=== PATIENT | female | born 1985 | race Caucasian/White ===

== ENCOUNTER 2020-02-12 17:25 | Emergency (ER) | payer BC, MEDICAID ==
[~2020-02-12] VITALS: Ht 167 cm; Wt 101.8 kg
[~2020-02-12 17:25] MED LIST: ACHYD1T PO; CEPH250T PO; CPH250CIP PO; DCS100C PO; IBP800T PO; LORA1TAB59 PO; LRT10T PO; OXYC-12 PO; PREN1TAB39 PO
[2020-02-12] MEDS ORDERED: DEXAMETHASONE 10 MG/ML (DECADRON) 1 ML VIAL IV ONE (18:00)
[2020-02-12] MEDS ORDERED: NS IV 1000 ML 1,000 ML IV SCH (18:00)
--- NOTE | 2020-02-12 18:05 | ED Integumentary General ---
General Chief Complaint: Bite-Animal/Human/Insect Stated Complaint: SPIDER BITE,SOB, DIZZINESS Nursing Triage Note: PT BIT BY SPIDER ON February AND NOW HAS SIGNIFICANT SWELLING AND REDNESS TO LEFT SIDE OF NECK. PT REPORTS DIFFICULTY SWALLOWING AND OCCASSIONALLY DIFFICULTY BREATHING. PT REPORTS INCREASED FATIGUE AND DIZZINESS. Source: patient Exam Limitations: no limitations History of Present Illness Date Seen by Provider: Feb 12, 2020 Time Seen by Provider: 18:03 Initial Comments To ER with swelling redness and pain to the left side of the neck. This began on February 07. She felt something sharp but did not see anything bite her. She now has some painful swallowing, intermittent dizziness no nausea no fevers. Timing/Duration: constant Severity: moderate Associated Symptoms: denies symptoms Allergies and Home Medications Allergies Coded Allergies: Penicillins (Unverified Allergy, Mild, RASH, FEVER, 03/03/09) Home Medications Docusate Sodium 100 Mg Capsule, 100 MG PO BID, (Reported) Hydrocodone Bit/Acetaminophen 1 Tab Tablet, 1-2 TAB PO Q3H PRN, (Reported) Ibuprofen 800 Mg Tab, 800 MG PO Q6HR PRN, (Reported) Loratadine/Pseudoephedrine Sul 1 Each Tab.sr.12h, 1 TAB PO DAILY PRN, (Reported) NEEDED FOR ALLERGIES Vits W-Ca,Fe,Fa(<1MG) 1 Each Tablet, 1 TAB PO HS, (Reported) Patient Home Medication List Home Medication List Reviewed: Yes Review of Systems Review of Systems Constitutional: see HPI EENTM: see HPI Respiratory: no symptoms reported Cardiovascular: no symptoms reported Genitourinary: no symptoms reported Musculoskeletal: no symptoms reported Skin: see HPI Psychiatric/Neurological: No Symptoms Reported Endocrine: No Symptoms Reported Hematologic/Lymphatic: No Symptoms Reported Past Gptqrwg-Mktycp-Ecvtqh Hx Patient Social History Alcohol Use: Denies Use Recreational Drug Use: No 2nd Hand Smoke Exposure: No Recent Foreign Travel: No Contact w/Someone Who Travel: No Recent Infectious Disease Expo: No Recent Hopitalizations: Yes (child ) Immunizations Up To Date Tetanus Booster (TDap): Unknown Seasonal Allergies Seasonal Allergies: No Past Medical History Surgeries: Yes (C/S X2) Respiratory: No Cardiac: No Neurological: No Reproductive Disorders: Yes Sexually Transmitted Disease: Yes (chlamydia) Gastrointestinal: No Musculoskeletal: No Endocrine: No Cancer: No Psychosocial: No Integumentary: No Blood Disorders: No Physical Exam Vital Signs Vital Signs - First Documented 02/12/20 17:34 Pulse 95 Resp 20 B/P (MAP) 139/84 (102) Pulse Ox 93 O2 Delivery Room Air Capillary Refill : Less Than 3 Seconds General Appearance: WD/WN, no apparent distress HEENT: PERRL/EOMI, normal ENT inspection Respiratory: no respiratory distress, no accessory muscle use Neurologic/Psychiatric: alert, normal mood/affect, oriented x 3 Skin: normal color, warm/dry Skin Problem Character: other (erythema with central pallor about palm size to the left side of the neck. There is a nickel sized area that is somewhat indurated but overall not much swelling. No fluctuance. Within that nickel-sized area of induration there is a central punctum without drainage.) Progress/Results/Core Measures Results/Orders Lab Results Laboratory Tests Test 02/12/20 18:46 Range/Units White Blood Count 10.4 4.3-11.0 10^3/uL Red Blood Count 4.70 4.35-5.85 10^6/uL Hemoglobin 12.5 11.5-16.0 G/DL Hematocrit 37 35-52 % Mean Corpuscular Volume 78 L 80-99 FL Mean Corpuscular Hemoglobin 27 25-34 PG Mean Corpuscular Hemoglobin Concent 34 32-36 G/DL Red Cell Distribution Width 13.8 10.0-14.5 % Platelet Count 304 130-400 10^3/uL Mean Platelet Volume 9.8 7.4-10.4 FL Neutrophils (%) (Auto) 66 42-75 % Lymphocytes (%) (Auto) 22 12-44 % Monocytes (%) (Auto) 5 0-12 % Eosinophils (%) (Auto) 7 0-10 % Basophils (%) (Auto) 0 0-10 % Neutrophils # (Auto) 6.9 1.8-7.8 X 10^3 Lymphocytes # (Auto) 2.3 1.0-4.0 X 10^3 Monocytes # (Auto) 0.6 0.0-1.0 X 10^3 Eosinophils # (Auto) 0.7 H 0.0-0.3 10^3/uL Basophils # (Auto) 0.0 0.0-0.1 10^3/uL Sodium Level 138 135-145 MMOL/L Potassium Level 3.7 3.6-5.0 MMOL/L Chloride Level 105 98-107 MMOL/L Carbon Dioxide Level 23 21-32 MMOL/L Anion Gap 10 5-14 MMOL/L Blood Urea Nitrogen 9 7-18 MG/DL Creatinine 0.81 0.60-1.30 MG/DL Estimat Glomerular Filtration Rate > 60 BUN/Creatinine Ratio 11 Glucose Level 91 70-105 MG/DL Calcium Level 9.1 8.5-10.1 MG/DL Corrected Calcium 9.1 8.5-10.1 MG/DL Total Bilirubin 0.3 0.1-1.0 MG/DL Aspartate Amino Transf (AST/SGOT) 23 5-34 U/L Alanine Aminotransferase (ALT/SGPT) 19 0-55 U/L Alkaline Phosphatase 110 40-136 U/L C-Reactive Protein High Sensitivity 2.12 H 0.00-0.50 MG/DL Total Protein 7.7 6.4-8.2 GM/DL Albumin 4.0 3.2-4.5 GM/DL Serum Test, Qualitative NEGATIVE NEGATIVE My Orders Orders - SETH HERBERT OBIEE CONSULTANT Cbc With Automated Diff (02/12/20 17:36) Comprehensive Metabolic Panel (02/12/20 17:36) Hs C Reactive Protein (02/12/20 17:55) Ns Iv 1000 Ml (Sodium Chloride 0.9%) (02/12/20 18:00) Ua Culture If Indicated (02/12/20 17:56) Ct Neck (Soft Tissue) W (02/12/20 18:00) Dexamethasone Injection (Decadron Inject (02/12/20 18:00) Iohexol Injection (Omnipaque 350 Mg/Ml 1 (02/12/20 18:15) Received Contrast (Hold Metformin- Contr (02/12/20 18:15) Ns (Ivpb) (Sodium Chloride 0.9% Ivpb Bag (02/12/20 18:15) Hcg,Qualitative Serum (02/12/20 19:06) Medications Given in ED Current Medications Medications Dose Ordered Sig/Martínez Route Start Time Stop Time Status Last Admin Dose Admin Dexamethasone Sodium Phosphate 10 mg ONCE ONCE IV 02/12/20 18:00 02/12/20 18:01 DC 02/12/20 18:53 10 MG Iohexol 75 ml ONCE ONCE IV 7/7/20 18:15 02/12/20 18:16 DC 02/12/20 19:18 75 ML Sodium Chloride 100 ml ONCE ONCE IV 02/12/20 18:15 02/12/20 18:16 DC 02/12/20 19:18 100 ML Vital Signs/I&O 02/12/20 17:34 Pulse 95 Resp 20 B/P (MAP) 139/84 (102) Pulse Ox 93 O2 Delivery Room Air Blood Pressure Mean: 102 Diagnostic Imaging Diagonstic Imaging: CT Comments NAME: TALYA MERLOS [facility] REC#: [id number] PT STATUS: REG ER : 1985 PHYSICIAN: SETH HERBERT OBIEE CONSULTANT ADMIT DATE: 02/12/20/ER Draft Date of Exam:02/12/20 CT NECK (SOFT TISSUE) W PROCEDURE: CT neck soft tissue with contrast. TECHNIQUE: Multiple contiguous axial images were obtained through the neck after the administration of contrast. Auto Exposure Controls were utilized during the CT exam to meet ALARA standards for radiation dose reduction. INDICATION: Spider bite COMPARISON: None available FINDINGS: Partially visualized intracranial contents are grossly unremarkable. The orbits are unremarkable. Parapharyngeal fat is symmetric and well-maintained. The salivary glands are unremarkable. The epiglottis and aryepiglottic folds are unremarkable. Fat stranding is identified within the left neck within the submandibular region. This is associated with thickening of the left platysma. Mildly prominent left cervical lymph nodes are noted within this region, including within the left submental and left submandibular location. Skin thickening is also present at this location. No focal fluid collection. The jugular vein and carotid arteries are not occluded. The thyroid gland is unremarkable. No apical pneumothorax. The lungs appear clear. The airway is patent. True and false vocal cords are unremarkable. Mild mucosal thickening within the bilateral maxillary sinuses, left greater than right. Minimal fluid/mucosal thickening within scattered ethmoidal air cells. The bilateral mastoid sinuses are clear. No temporomandibular joint dislocation. Straightening of normal cervical lordosis without acute osseous abnormality. IMPRESSION: Findings consistent with cellulitis involving the left neck region without evidence of abscess formation. Mild left-sided reactive adenopathy is present. No evidence of airway compromise. Mild paranasal sinus disease Dictated on workstation # [id number] Dict: 02/12/201918 Trans: 02/12/201927 [facility], [facility] [id number] Interpreted by: SUNITHA MANTILLA MD Electronically signed by: Departure Impression Primary Impression: Spider bite wound Qualified Codes: T63.304A - Toxic effect of unspecified spider venom, undetermined, initial encounter Disposition: HOME, SELF-CARE Condition: Stable Departure-Patient Inst. Decision time for Depature: 19:32 Referrals: NOAH SMITH MD (PCP/Family) Primary Care Physician Patient Instructions: Wound Care Add. Discharge Instructions: Ice pack to the area. Pain medication as directed. Antibiotics as directed. Follow-up with your doctor later this week for recheck. Return to ER for any worsening. All discharge instructions reviewed with patient and/or family. Voiced understanding. Scripts Cephalexin (Keflex) 500 Mg Capsule 500 MG PO QID, #28 CAP Prov: SETH HERBERT APRN 02/12/20 Prednisone (Prednisone) 20 Mg Tab 60 MG PO DAILY, #9 TAB 0 Refills Prov: SETH HERBERT APRN 02/12/20 Images Head/Face 1 - Tenderness SETH HERBERT APRN Feb 12, 2020 18:05
[2020-02-12] MEDS ORDERED: HOLD METFORMIN - RECEIVED CONTRAST 20 ML VIAL IV SCH (18:15)
[2020-02-12] MEDS ORDERED: NS 100 ML (IVPB) BAG IV ONE (18:15)
[2020-02-12] MEDS ORDERED: IOHEXOL 350 MG/ML 100 ML (OMNIPAQUE 350) VIAL IV ONE (18:15)
[2020-02-12 18:52] LABS: BASOPHILS % (AUTO) 0 % (0-10); EOSINOPHILS # (AUTO) 0.7 10^3/uL (0.0-0.3); EOSINOPHILS % (AUTO) 7 % (0-10); HEMATOCRIT 37 % (35-52); HEMOGLOBIN 12.5 G/DL (11.5-16.0); LYMPHOCYTES # (AUTO) 2.3 X 10^3 (1.0-4.0); LYMPHOCYTES % (AUTO) 22 % (12-44); MEAN CORPUSCULAR HEMOGLOBIN 27 PG (25-34); MEAN CORPUSCULAR HGB CONC 34 G/DL (32-36); MEAN CORPUSCULAR VOLUME 78 FL (80-99); MEAN PLATELET VOLUME 9.8 FL (7.4-10.4); MONOCYTES # (AUTO) 0.6 X 10^3 (0.0-1.0); MONOCYTES % (AUTO) 5 % (0-12); NEUTROPHILS # (AUTO) 6.9 X 10^3 (1.8-7.8); NEUTROPHILS % (AUTO) 66 % (42-75); PLATELET COUNT 304 10^3/uL (130-400); RED CELL DISTRIBUTION WIDTH 13.8 % (10.0-14.5); WHITE BLOOD COUNT 10.4 10^3/uL (4.3-11.0)
--- NOTE | 2020-02-12 19:28 | Diagnostic Imaging Report ---
PROCEDURE: CT neck soft tissue with contrast. TECHNIQUE: Multiple contiguous axial images were obtained through the neck after the administration of contrast. Auto Exposure Controls were utilized during the CT exam to meet ALARA standards for radiation dose reduction. INDICATION: Spider bite COMPARISON: None available FINDINGS: Partially visualized intracranial contents are grossly unremarkable. The orbits are unremarkable. Parapharyngeal fat is symmetric and well-maintained. The salivary glands are unremarkable. The epiglottis and aryepiglottic folds are unremarkable. Fat stranding is identified within the left neck within the submandibular region. This is associated with thickening of the left platysma. Mildly prominent left cervical lymph nodes are noted within this region, including within the left submental and left submandibular location. Skin thickening is also present at this location. No focal fluid collection. The jugular vein and carotid arteries are not occluded. The thyroid gland is unremarkable. No apical pneumothorax. The lungs appear clear. The airway is patent. True and false vocal cords are unremarkable. Mild mucosal thickening within the bilateral maxillary sinuses, left greater than right. Minimal fluid/mucosal thickening within scattered ethmoidal air cells. The bilateral mastoid sinuses are clear. No temporomandibular joint dislocation. Straightening of normal cervical lordosis without acute osseous abnormality. IMPRESSION: Findings consistent with cellulitis involving the left neck region without evidence of abscess formation. Mild left-sided reactive adenopathy is present. No evidence of airway compromise. Mild paranasal sinus disease Dictated by: Dictated on workstation # [id number]
[2020-02-12 19:29] LABS: ALANINE AMINOTRANSFERASE 19 U/L (0-55); ALKALINE PHOSPHATASE 110 U/L (40-136); BILIRUBIN,TOTAL 0.3 MG/DL (0.1-1.0); BUN/CREATININE RATIO 11; CALCIUM 9.1 MG/DL (8.5-10.1); CARBON DIOXIDE 23 MMOL/L (21-32); CHLORIDE 105 MMOL/L (98-107); CREATININE SERUM 0.81 MG/DL (0.60-1.30); GFR ESTIMATED > 60; GLUCOSE 91 MG/DL (70-105); POTASSIUM 3.7 MMOL/L (3.6-5.0); SODIUM 138 MMOL/L (135-145); TOTAL PROTEIN 7.7 GM/DL (6.4-8.2)
[2020-02-12] MEDS ORDERED: CEPH-507 PO (19:36)
[2020-02-12] MEDS ORDERED: HYDR-3870 PO (19:36)
[2020-02-12] MEDS ORDERED: PRD20T PO (19:36)
[2020-02-12 19:55] LABS: BILIRUBIN,URINE NEGATIVE (NEGATIVE); CLARITY,URINE CLEAR; COLOR,URINE YELLOW; GLUCOSE, URINE (UA) NEGATIVE (NEGATIVE); KETONES,URINE NEGATIVE (NEGATIVE); LEUKOCYTE ESTERASE ,URINE NEGATIVE (NEGATIVE); NITRITE,URINE NEGATIVE (NEGATIVE); PROTEIN,URINE NEGATIVE (NEGATIVE)
[2020-02-12 20:36] LABS: AMORPHOUS SEDIMENT,UR RARE AMOR URATES /LPF; BACTERIA,URINE NEGATIVE /HPF; RBC,URINE 0-2 /HPF; WBC,URINE 0-2 /HPF
[2020-02-12 20:40] VITALS: BP 124/88
--- OUTSIDE RECORDS SUMMARY | 2020-02-12 22:18 | XMS REPORT ---
Author Author Abril GOMEZ [facility] Address [address] [place] [address] Care Team Providers Care Land Acquisition Specialist Name Role Phone MEENA GOMEZ Unavailable PROBLEMS Unknown Problems ALLERGIES No Information ENCOUNTERS Encounter Location Date Diagnosis [facility] [address] [facility] [id number] [place] [address] Jul, Visit for TB skin test Z11.1 IMMUNIZATIONS No Known Immunizations SOCIAL HISTORY Never Assessed REASON FOR VISIT TB skin test [id number] PLAN OF CARE Activity Details Follow Up 48-72 hours Reason: VITAL SIGNS MEDICATIONS Unknown Medications RESULTS No Results PROCEDURES Procedure Date Ordered Result Body Site TB INTRADERMAL TEST Aug 02, 2017 INSTRUCTIONS MEDICATIONS ADMINISTERED No Known Medications
--- OUTSIDE RECORDS SUMMARY | 2020-02-12 22:18 | XMS REPORT | Continuity of Care Document ---
Author Organization Unknown Address Unknown Phone Unavailable Allergies Active Description Code Type Severity Reaction Onset Reported/Identified Relationship to Patient Clinical Status Yes Penicillins [id number] Drug Aller gy Mild RASH, FEVER 03/03/2009 Medications There is no data. Problems Date Dx Coded Attending Type Code Diagnosis Diagnosed By 07/08/2017 Ot 644.13 07/10/2018 Ot 644.13 06/08/2019 Ot 644.13 Procedures There is no data. Results Test Result Range Complete blood count (CBC) with automate d white blood cell (WBC) differential - 02/12/20 18:46 Blood leukocytes automated count (number/volume) 10.4 10*3/uL 4.3-11.0 Blood erythrocytes automated count (number/volume) 4.70 10*6/uL 4.35-5.85 Venous blood hemoglobin measurement (mass/volume) 12.5 g/dL 11.5-16.0 Blood hematocrit (volume fraction) 37 % 35-52 Automated erythrocyte mean corpuscular volume 78 [ foz_us] 80-99 Automated erythrocyte mean corpuscular h emoglobin (mass per erythrocyte) 27 pg 25-34 Automated erythrocyte mean corpuscular h emoglobin concentration measurement (mass/volume) 34 g/dL 32-36 Automated erythrocyte distribution width ratio 13. 8 % 10.0- 14.5 Automated blood platelet count (count/volume) 304 10*3/uL 130-400 Automated blood platelet mean volume measurement 9.8 [foz_us] 7.4-10.4 Automated blood neutrophils/100 leukocytes 66 % 42-75 Automated blood lymphocytes/100 leukocytes 22 % 12-44 Blood monocytes/100 leukocytes 5 % 0-12 Automated blood eosinophils/100 leukocytes 7 % 0-10 Automated blood basophils/100 leukocytes 0 % 0-10 Blood neutrophils automated count (number/volume) 6.9 10*3 1.8-7.8 Blood lymphocytes automated count (number/volume) 2.3 10*3 1.0-4.0 Blood monocytes automated count (number/volume) 0. 6 10*3 0.0-1.0 Automated eosinophil count 0.7 10*3/uL 0 .0-0.3 Automated blood basophil count (count/volume) 0.0 10*3/uL 0.0-0.1 Serum or plasma choriogonadotropin (preg lizzy test) detection - 02/12/20 18:46 Serum or plasma choriogonadotropin ( test) de tection NEGATIVE NEGATIVE Comprehensive metabolic panel - 02/12/20 18:46 Serum or plasma sodium measurement (moles/volume) 138 mmol/L 135-145 Serum or plasma potassium measurement (moles/volume) 3.7 mmol/L 3.6-5.0 Serum or plasma chloride measurement (moles/volume) 105 mmol/L 98-107 Carbon dioxide 23 mmol/L 21-32 Serum or plasma anion gap determination (moles/volume) 10 mmol/L 5-14 Serum or plasma urea nitrogen measurement (mass/volume ) 9 mg/dL 7-18 Serum or plasma creatinine measurement (mass/volume) 0.81 mg/dL 0.60-1.30 Serum or plasma urea nitrogen/creatinine mass ratio 11 NRG Serum or plasma creatinine measurement w ith calculation of estimated glomerular filtration rate > NRG Serum or plasma glucose measurement (mass/volume) 91 mg/dL 70-105 Serum or plasma calcium measurement (mass/volume) 9.1 mg/dL 8.5-10.1 Serum or plasma total bilirubin measurement (mass/volu me) 0.3 mg/dL 0.1-1.0 Serum or plasma alkaline phosphatase joey surement (enzymatic activity/volume) 110 U/L 40-136 Serum or plasma aspartate aminotransfera se measurement (enzymatic activity/volume) 23 U/L 5-34 Serum or plasma alanine aminotransferase measurement (enzymatic activity/volume) 19 U/L 0-55 Serum or plasma protein measurement (mass/volume) 7.7 g/dL 6.4-8.2 Serum or plasma albumin measurement (mass/volume) 4.0 g/dL 3.2-4.5 CALCIUM CORRECTED 9.1 mg/dL 8.5-10.1 Serum or plasma C reactive protein measu rement (mass/volume) - 02/12/20 18:46 Serum or plasma C reactive protein measurement (mass/v olume) 2.12 mg/dL 0.00-0.50 Complete urinalysis with reflex to cultu re - 02/12/20 19:45 Urine color determination YELLOW NRG Urine clarity determination CLEAR NR G Urine pH measurement by test strip 6.0 5-9 Specific gravity of urine by test strip 1.010 1.016-1.022 Urine protein assay by test strip, semi-quantitative NEGATIVE NEGATIVE Urine glucose detection by automated test strip NE GATIVE NEGATIVE Erythrocytes detection in urine sediment by light micr oscopy 1+ NEGATIVE Urine ketones detection by automated test strip NE GATIVE NEGATIVE Urine nitrite detection by test strip NEGATIVE NEGATIVE Urine total bilirubin detection by test strip NEGA TIVE NEGATIVE Urine urobilinogen measurement by automated test strip (mass/volume) 0.2 mg/dL < = 1.0 Urine leukocyte esterase detection by dipstick NEG ATIVE NEGATIVE Automated urine sediment erythrocyte cou nt by microscopy (number/high power field) [HPF] NRG Automated urine sediment leukocyte count by microscopy (number/high power field) [HPF] NRG Bacteria detection in urine sediment by light microsco py NEGATIVE NRG Crystals detection in urine sediment by light microsco py PRESENT NRG Casts detection in urine sediment by light microscopy NONE NRG Mucus detection in urine sediment by light microscopy NEGATIVE NRG Complete urinalysis with reflex to culture NO NRG Amorphous sediment detection in urine sediment by ligh t microscopy RARE GLORIA URATES NRG Encounters ACCT No. Visit Date/Time Discharge Status Pt. Type Provider Facility Loc./Unit Complaint [id number] 02/10/2020 14:00:00 ACT Outpatient SARAH BANKS, NOAH [facility] [id number] 05/22/2013 05:34:00 13:25:00 DIS Inpatient [id number] 05/16/2013 09:46:00 23:59:59 CLS Outpatient [id number] 05/04/2013 12:41:00 14:29:00 DIS Outpatient [id number] 04/11/2013 21:12:00 11:18:00 DIS Outpatient [id number] 04/11/2013 11:28:00 17:50:00 DIS Outpatient [id number] 01/08/2013 14:52:00 013 23:59:59 [facility] Outpatient [id number] 02/12/2020 18:57:00 Document Registration [id number] 03/24/2009 22:30:00 Document Registration
--- OUTSIDE RECORDS SUMMARY | 2020-02-12 22:18 | XMS REPORT | Continuity of Care Document ---
Author Author [facility] Organization [facility] Address Unknown Phone Unavailable Care Team Providers Care Staying Machine Operator Name Role Phone NOAH SMITH MD PP Insurance Providers Payer Name Policy Number Subscriber Name Relationship [facility] [employer] [id number] Talya Ortiz 01 Self / Same As Patient Advance Directives Directive Response Recor ded Date Advance Directives N 11/18 12:16pm Health Care Power of Sap Gatherer N 04/11/13 12:16pm Organ Donor N 04/11/13 1 2:16pm Problems No Known Problems or Medical conditions. Family History History Response Recorde d Date/Time Hx Family Cancer Y father/ca thyroid 06/30/10 6:20am Hx Family Breast Cancer Y aunt/grandmother 06/30/10 6:20am Hx Family Cardiac Disorders Y father 06/30/10 6:20am Hx Family Hypertension Y 06/30/10 6:20am Hx Family Myocardial Infarction Y father 06/30/10 6:20am Allergies, Adverse Reactions, Alerts Allergen Type Severity Reaction Last Updated Penicillins Allergy Mild RASH, FEVER 03/03/09 Medications Medication Dose Units Route Sig Qty Days Vits W-Ca,Fe,Fa(<1MG) () 1 Tab PO DAILY Loratadine (Claritin) 10 Mg PO DAILY Oxycodone Hcl/Acetaminophen (Percocet 5-325 Mg Tablet) 1 Each PO 1-2 PO Q 4HR PRN Response Recorded Date/Time Status not known Unknown Results Test Date Result Interp. Ref. Range Alanine Aminotransferase (ALT/SGPT) July 02, 2010 4:45am 23 U/L L 30-65 Albumin July 02, 2010 4:45am 2.4 G/DL L 3.4-5.0 Alkaline Phosphatase July 02 10 4:45am 199 U/L H 50-136 Aspartate Amino Transf (AST/SGOT) No [id number] 4:45am 17 U/L N 15-37 BUN/Creatinine Ratio July 02 10 4:45am 4 - Band Neutrophils March 25, 2009 3:59am 3 % - Basophils # (Auto) July 01, 2010 5:41a m 0.0 10^3/uL N 0.0-0.1 Basophils (%) (Auto) July 01 10 5:41am 0 % N 0-10 Blood Urea Nitrogen July 02 0 4:45am 4 MG/DL L 7-18 Calcium Level July 02, 2010 4:45am 8.1 MG/DL L 8.5-10.1 Carbon Dioxide Level July 02 10 4:45am 26 MMOL/L N 21-32 Chloride Level July 02, 2010 4:45am 103 MMOL/L N 101-110 Creatinine July 02, 2010 4:45am 0.9 MG/DL N 0.6-1.3 Eosinophils # (Auto) July 01 10 5:41am 0.1 10^3/uL N 0.0-0.3 Eosinophils (%) (Auto) July 01, 2010 5:41am 1 % N 0-10 Glucose Level July 02, 2010 4:45am 79 MG/DL N 70-126 Hematocrit July 01, 2010 5:41am 30 % L 35-52 Hemoglobin July 01, 2010 5:41am 10.0 G/DL L 11.5-16.0 Lymphocytes # (Auto) July 01 10 5:41am 1.5 X 10^3 N 1.0-4.0 Lymphocytes % (Manual) March 25 09 3:59am 8 % - Lymphocytes (%) (Auto) July 01, 2010 5:41am 14 % N 12-44 Magnesium Level July 02, 2010 4:45am 1.8 MG/DL N 1.8-2.4 Mean Corpuscular Hemoglobin July 01, 2010 5:41am 28 PG N 25-34 Mean Corpuscular Hemoglobin Concent July 01, 2010 5:41am 33 G/DL N 32-36 Mean Corpuscular Volume July 01, 2010 5:41am 84 FL N 80-99 Mean Platelet Volume July 01 10 5:41am 11.4 FL H 7.4-10.4 Monocytes # (Auto) July 01, 2010 5:41a m 0.7 X 10^3 N 0.0-1.0 Monocytes % (Manual) March 25, 2009 3:59a m 2 % - Monocytes (%) (Auto) July 01 10 5:41am 7 % N 0-12 Neutrophils # (Auto) July 01 10 5:41am 8.3 X 10^3 H 1.8-7.8 Neutrophils % (Manual) March 25 09 3:59am 87 % - Neutrophils (%) (Auto) July 01, 2010 5:41am 78 % H 42-75 Platelet Count July 01, 2010 5:41am 159 10^3/uL N 130-400 Potassium Level July 02, 2010 4:45am 3.5 MMOL/L L 3.6-5.0 Red Blood Count July 01, 2010 5:41am 3.57 10^6/uL L 4.35-5.85 Red Cell Distribution Width July 01, 2010 5:41am 13.8 % N 10.0-14.5 Sodium Level July 02, 2010 4:45am 136 MMOL/L N 135-145 Total Bilirubin July 02, 2010 4:45am 0.2 MG/DL N 0.0-1.0 Total Protein July 02, 2010 4:45am 6.2 G/DL L 6.4-8.2 Urine Bacteria March 06, 2010 3:45pm TRACE - Urine Bilirubin March 06, 2010 3:45pm NEGATIVE - Urine Casts March 06, 2010 3:45pm NONE - Urine Clarity March 06, 2010 3:45pm CLEAR - Urine Color March 06, 2010 3:45pm YELLOW - Urine Crystals March 06, 2010 3:45pm NONE - Urine Culture Indicated March 06 0 3:45pm YES - Urine Glucose (UA) March 06, 2010 3:45pm NEGATIVE - Urine Ketones March 06, 2010 3:45pm NEGATIVE - Urine Leukocyte Esterase March 06 10 3:45pm NEGATIVE - Urine Mucus March 06, 2010 3:45pm NEGATIVE - Urine Nitrite March 06, 2010 3:45pm NEGATIVE - Urine Protein March 06, 2010 3:45pm TRACE - Urine RBC March 06, 2010 3:45pm NONE /HPF - Urine Specific [place] March 06, 2010 3:45p m 1.020 - Urine Squamous Epithelial Cells March 06, 2010 3:45pm 10-25 H - Urine Urobilinogen March 06, 2010 3:45pm NORMAL MG/DL - Urine WBC March 06, 2010 3:45pm 10-25 /HPF H - Urine pH March 06, 2010 3:45pm 5.0 - White Blood Count July 01, 2010 5:41am 10.6 10^3/uL N 4.3-11.0 Estimat Glomerular Filtration Rate N ovember 2009 9:35am > 60 - Blood Morphology Comment March 25, 2009 3:59am NORMAL - Urine RBC (Auto) March 06, 2010 3:45pm 1+ H - Procedures Procedure Code Date LOW CERVICAL 74.1 03/25/09 LOW CERVICAL 74.1 06/30/10 MRSA Screen 06/23/10 Urine Culture 03/06/10 Encounters Encounter Location Date/ Time Discharged Inpatient [facility] 06/30/10 6:03am
--- OUTSIDE RECORDS SUMMARY | 2020-02-12 22:18 | XMS REPORT | Continuity of Care Document ---
Author Author [facility] Organization [facility] Address Unknown Phone Unavailable Care Team Providers Care Tutor Coordinator Name Role Phone NOAH SMITH MD PP Insurance Providers Payer Name Policy Number Subscriber Name Relationship [facility] [id number] Talya Ortiz 01 Self / Same As Patient Advance Directives Directive Response Recor ded Date Advance Directives N 5:50am Health Care Power of Consulting Database Administrator N 05/22/13 5:50am Organ Donor N 05/22/13 5 :50am Problems No Known Problems or Medical conditions. Family History History Response Recorde d Date/Time Hx Family Cancer Y father/ca thyroid 05/22/13 5:50am Hx Family Breast Cancer Y aunt/grandmother 05/22/13 5:50am Hx Family Cardiac Disorders Y father 05/22/13 5:50am Hx Family Hypertension Y 05/22/13 5:50am Hx Family Myocardial Infarction Y father 05/22/13 5:50am Social History History Response Recorde d Date/Time Alcohol Use Denies Use 1 5:50am Recreational Drug Use N 05/22/13 5:50am Recent Foreign Travel N 05/22/13 5:50am Recent Infectious Disease Exposure N 05/22/13 5:50am Hospitalization with Isolation Denies 05/25/13 1:45pm Sexually Transmitted Disease Y chlamydia 05/22/13 5:50am Allergies, Adverse Reactions, Alerts Allergen Type Severity Reaction Last Updated Penicillins Allergy Mild RASH, FEVER 03/03/09 Medications Medication Dose Units Route Sig Qty Days Ibuprofen (Motrin) 800 Mg PO Q6HR PRN 60 Acetaminophen/Hydrocodone Bitart (Lorcet Plus 10/325 M g) 1 - 2 Tab PO Q3H PRN 60 Docusate Sodium (Colace) 100 Mg PO BID 60 Loratadine/Pseudoephedrine Sul (Claritin-D 12 Hour Tab let) 1 Tab PO DAILY PRN Vits W-Ca,Fe,Fa(<1MG) () 1 Tab PO HS Cephalexin Hcl (Keflex Capsule) 250 Mg PO QID 7 Cephalexin Monohydrate (Cephalexin) 1 Each PO TID 21 Loratadine (Claritin) 10 Mg PO DAILY Oxycodone Hcl/Acetaminophen (Percocet 5-325 Mg Tablet) 1 Each PO 1-2 PO Q 4HR PRN Immunizations Name Given Type Tdap 05/24/13 A influenza, split (incl. purified surface antigen) 05/24/13 A influenza, split (incl. purified surface antigen) 05/04/13 A Response Recorded Date/Time Status not known Unknown [...] 3:59am 3 % - Basophils # (Auto) May 16, 2013 10:15a m 0.0 10^3/uL N 0.0-0.1 Basophils (%) (Auto) May 16 3 10:15am 0 % N 0-10 Blood Urea Nitrogen July 02 0 4:45am 4 MG/DL L 7-18 Calcium Level July 02, 2010 4:45am 8.1 MG/DL L 8.5-10.1 Carbon Dioxide Level July 02 10 4:45am 26 MMOL/L N 21-32 Chloride Level July 02, 2010 4:45am 103 MMOL/L N 101-110 Creatinine July 02, 2010 4:45am 0.9 MG/DL N 0.6-1.3 Eosinophils # (Auto) May 16 3 10:15am 0.1 10^3/uL N 0.0-0.3 Eosinophils (%) (Auto) May 16 013 10:15am 1 % N 0-10 Glucose Level July 02, 2010 4:45am 79 MG/DL N 70-126 Hematocrit May 16, 2013 10:15am 35 % N 35-52 Hemoglobin May 16, 2013 10:15am 12.2 G/DL N 11.5-16.0 Lymphocytes # (Auto) May 16 10:15am 1.6 X 10^3 N 1.0-4.0 Lymphocytes % (Manual) March 25 3:59am 8 % - Lymphocytes (%) (Auto) May 16 013 10:15am 17 % N 12-44 Magnesium Level July 02, 2010 4:45am 1.8 MG/DL N 1.8-2.4 Mean Corpuscular Hemoglobin May 16, 2013 10:15am 29 PG N 25-34 Mean Corpuscular Hemoglobin Concent May 16, 2013 10:15am 35 G/DL N 32-36 Mean Corpuscular Volume May 16, 2013 10:15am 84 FL N 80-99 Mean Platelet Volume May 16 3 10:15am 10.9 FL H 7.4-10.4 Monocytes # (Auto) May 16, 2013 10:15a m 0.4 X 10^3 N 0.0-1.0 Monocytes % (Manual) March 25, 2009 3:59a m 2 % - Monocytes (%) (Auto) May 16 10:15am 4 % N 0-12 Neutrophils # (Auto) May 16 10:15am 7.0 X 10^3 N 1.8-7.8 Neutrophils % (Manual) March 25 3:59am 87 % - Neutrophils (%) (Auto) May 16 013 10:15am 78 % H 42-75 Platelet Count May 16, 2013 10:15am 200 10^3/uL N 130-400 Potassium Level July 02, 2010 4:45am 3.5 MMOL/L L 3.6-5.0 Red Blood Count May 16, 2013 10:15am 4.20 10^6/uL L 4.35-5.85 Red Cell Distribution Width May 16, 2013 10:15am 13.6 % N 10.0-14.5 Sodium Level July 02, 2010 4:45am 136 MMOL/L N 135-145 Total Bilirubin July 02, 2010 4:45am 0.2 MG/DL N 0.0-1.0 Total Protein July 02, 2010 4:45am 6.2 G/DL L 6.4-8.2 Urine Bacteria May 04, 2013 12:55pm MODERATE /HPF H - Urine Bilirubin May 04, 2013 12:55pm NEGATIVE - Urine Casts May 04, 2013 12:55pm NONE /LPF - Urine Clarity May 04, 2013 12:55pm SLIGHTLY CLOUDY - Urine Color May 04, 2013 12:55pm YELLOW - Urine Crystals May 04, 2013 12:55pm NONE /LPF - Urine Culture Indicated April 12:55pm NO - Urine Glucose (UA) May 04 3 12:55pm NEGATIVE - Urine Ketones May 04, 2013 12:55pm NEGATIVE - Urine Leukocyte Esterase April 092012 12:55pm 1+ H - Urine Mucus May 04, 2013 12:55pm NEGATIVE /LPF - Urine Nitrite May 04, 2013 12:55pm NEGATIVE - Urine Protein May 04, 2013 12:55pm NEGATIVE - Urine RBC May 04, 2013 12:55pm NONE /HPF - Urine Specific [place] May 04, 2013 12:55pm 1.010 L - Urine Squamous Epithelial Cells Sept emb2012 12:55pm 2-5 /HPF - Urine Urobilinogen May 04 3 12:55pm NORMAL MG/DL - Urine WBC May 04, 2013 12:55pm 5-10 /HPF H - Urine pH May 04, 2013 12:55pm 7 - White Blood Count May 16, 2013 10:15am 8.9 10^3/uL N 4.3-11.0 Estimat Glomerular Filtration Rate N ovember 2009 9:35am > 60 - Blood Morphology Comment March 25, 2009 3:59am NORMAL - Urine RBC (Auto) May 04, 2013 12:55p m NEGATIVE - Procedures Procedure Code Date LOW CERVICAL 74.1 03/25/09 LOW CERVICAL 74.1 06/30/10 MRSA Screen 06/23/10 Urine Culture 05/04/13 Encounters Encounter Location Date/ Time Discharged Inpatient [facility] 05/22/13 5:34am
--- OUTSIDE RECORDS SUMMARY | 2020-02-12 22:18 | XMS REPORT | Continuity of Care Document ---
Author Author [facility] Organization [facility] Address Unknown Phone Unavailable Care Team Providers Care Commander Internal Affairs Name Role Phone NOAH SMITH MD PP Insurance Providers Payer Name Policy Number Subscriber Name Relationship [facility] [employer] [id number] Talya Ortiz 01 Self / Same As Patient Advance Directives Directive Response Recor ded Date Advance Directives N 11/18 9:50pm Health Care Power of Service Loss Control Consultant N 04/11/13 9:50pm Organ Donor N 04/11/13 9 :50pm Problems No Known Problems or Medical conditions. [...] Medication Dose Units Route Sig Qty Days Cephalexin Hcl (Keflex Capsule) 250 Mg PO QID 7 Vits W-Ca,Fe,Fa(<1MG) () 1 Tab PO DAILY Cephalexin Monohydrate (Cephalexin) 1 Each PO TID 21 Loratadine (Claritin) 10 Mg PO DAILY Oxycodone Hcl/Acetaminophen (Percocet 5-325 Mg Tablet) 1 Each PO 1-2 PO Q 4HR PRN Immunizations Name Given Type influenza, split (incl. purified surface antigen) 05/04/13 A Response Recorded Date/Time Status not known Unknown Results Test Date Result Interp. Ref. Range Alanine Aminotransferase (ALT/SGPT) July 02, 2010 4:45am 23 U/L L 30-65 Albumin July 02, 2010 4:45am 2.4 G/DL L 3.4-5.0 Alkaline Phosphatase July 02 4:45am 199 U/L H 50-136 Aspartate Amino Transf (AST/SGOT) No vem2009 4:45am 17 U/L N 15-37 BUN/Creatinine Ratio July 02 4:45am 4 - Band Neutrophils March 25, 2009 3:59am 3 % - Basophils # (Auto) July 01, 2010 5:41a m 0.0 10^3/uL N 0.0-0.1 Basophils (%) (Auto) July 01 5:41am 0 % N 0-10 Blood Urea Nitrogen July 02 0 4:45am 4 MG/DL L 7-18 Calcium Level July 02, 2010 4:45am 8.1 MG/DL L 8.5-10.1 Carbon Dioxide Level July 02 10 4:45am 26 MMOL/L N 21-32 Chloride Level July 02, 2010 4:45am 103 MMOL/L N 101-110 Creatinine July 02, 2010 4:45am 0.9 MG/DL N 0.6-1.3 Eosinophils # (Auto) July 01 5:41am 0.1 10^3/uL N 0.0-0.3 Eosinophils (%) (Auto) July 01, 2010 5:41am 1 % N 0-10 Glucose Level July 02, 2010 4:45am 79 MG/DL N 70-126 Hematocrit July 01, 2010 5:41am 30 % L 35-52 Hemoglobin July 01, 2010 5:41am 10.0 G/DL L 11.5-16.0 Lymphocytes # (Auto) July 01 5:41am 1.5 X 10^3 N 1.0-4.0 Lymphocytes [...] 4:45am 6.2 G/DL L 6.4-8.2 Urine Bacteria April 11, 2013 9:35pm MODERATE /HPF H - Urine Bilirubin April 11, 2013 9:35pm NEGATIVE - Urine Casts April 11, 2013 9:35pm NONE /LPF - Urine Clarity April 11, 2013 9:35pm SLIGHTLY CLOUDY - Urine Color April 11, 2013 9:35pm YELLOW - Urine Crystals April 11, 2013 9:35pm NONE /LPF - Urine Culture Indicated April 9:35pm YES - Urine Glucose (UA) April 11 3 9:35pm 1+ H - Urine Ketones April 11, 2013 9:35pm NEGATIVE - Urine Leukocyte Esterase April 9:35pm 3+ H - Urine Mucus April 11, 2013 9:35pm NEGATIVE /LPF - Urine Nitrite April 11, 2013 9:35pm NEGATIVE - Urine Protein April 11, 2013 9:35pm 3+ H - Urine RBC April 11, 2013 9:35pm 50-100 /HPF H - Urine Specific [place] April 11, 2013 9:35pm 1.015 L - Urine Squamous Epithelial Cells March 06, 2010 3:45pm 10-25 H - Urine Urobilinogen April 11 3 9:35pm NORMAL MG/DL - Urine WBC April 11, 2013 9:35pm 50-100 /HPF H - Urine pH April 11, 2013 9:35pm 7 - White Blood Count July 01, 2010 5:41am 10.6 10^3/uL N 4.3-11.0 Estimat Glomerular Filtration Rate N ov2009 9:35am > 60 - Blood Morphology Comment March 25, 2009 3:59am NORMAL - Urine RBC (Auto) April 11, 2013 9:35pm 5+ H - Procedures Procedure Code Date LOW CERVICAL 74.1 03/25/09 LOW CERVICAL 74.1 06/30/10 MRSA Screen 06/23/10 Urine Culture 04/11/13 Encounters Encounter Location Date/ Time Discharged Inpatient [facility] 06/30/10 6:03am
--- OUTSIDE RECORDS SUMMARY | 2020-02-12 22:18 | XMS REPORT | Continuity of Care Document ---
Author Author [facility] Organization [facility] Address Unknown Phone Unavailable Care Team Providers Care Truck Mechanic Name Role Phone NOAH SMITH MD PP Insurance Providers Payer Name Policy Number Subscriber Name Relationship [facility] [employer] [id number] Talya Ortiz 01 Self / Same As Patient Advance Directives Directive Response Recor ded Date Advance Directives N 11/18 9:50pm Health Care Power of Neonatologist N 04/11/13 9:50pm Organ Donor N 04/11/13 [...] Dose Units Route Sig Qty Days Cephalexin Monohydrate (Cephalexin) 1 Each PO TID 21 Vits W-Ca,Fe,Fa(<1MG) () 1 Tab PO DAILY [...] 2010 3:45pm NONE /HPF - Urine Specific [place] March 06, 2010 3:45p m 1.020 - [...]
== END 2020-02-12 20:40 | disposition home or self-care (01) ==
LOC: EDUNIT# 17:25 → ER 17:26
DX: T63.301A Toxic effect of unspecified spider venom, accidental (unintentional), initial encounter (principal); Z88.0 Allergy status to penicillin
CPT/HCPCS: 36415; 70491; 80053; 81000; 84703; 85025; 86141

== ENCOUNTER 2021-04-05 19:19 | Emergency (ER) | payer BC ==
[~2021-04-05] VITALS: Ht 167.7 cm; Wt 95.3 kg
[~2021-04-05 19:19] MED LIST changes: +CEPH-507 PO; +HYDR-3870 PO; +PRD20T PO
--- NOTE | 2021-04-05 20:01 | Diagnostic Imaging Report ---
EXAMINATION: Right wrist radiographs, 3 views. COMPARISON: None. HISTORY: 35-year-old female, fall. Right wrist pain. FINDINGS: There is no identified acute fracture. There is no subluxation or dislocation. There is film artifact. There is no identified radiopaque foreign body. Joint spaces are well preserved. IMPRESSION: Unremarkable radiographs of the right wrist. Dictated by: Dictated on workstation # [id number]
--- NOTE | 2021-04-05 20:11 | ED Upper Extremity ---
General Chief Complaint: Upper Extremity Stated Complaint: R ARM SWELLING/PAIN, FALL Nursing Triage Note: PT AMBULATE TO ROOM 03 WITH C/O RIGHT WRIST PAIN. PT STATES SHE WAS BOWLING AND HER SON TOSSED SOMETHING IN FRONT OF HER AND SHE TRIPPED LANDING ON RIGHT WRIST. (MARYJO HAYDEN) History of Present Illness Date Seen by Provider: Apr 05, 2021 Time Seen by Provider: 19:35 Initial Comments 35-year-old female reports that she was going to fall when she tripped falling and landing on her right wrist. No previous histories of injuries to her right upper extremity. She is right-hand dominant. Onset: this afternoon Severity: mild Pain/Injury Location: right wrist Method of Injury: fell (MARYJO HAYDEN) Allergies and Home Medications Allergies Coded Allergies: Penicillins (Unverified Allergy, Mild, RASH, FEVER, 03/03/09) Home Medications Cephalexin 500 Mg Capsule, 500 MG PO QID Prescribed by: SETH HERBERT on 02/12/201935 Docusate Sodium 100 Mg Capsule, 100 MG PO BID, (Reported) Hydrocodone Bit/Acetaminophen 1 Tab Tablet, 1-2 TAB PO Q3H PRN, (Reported) Hydrocodone/Acetaminophen 1 Each Tablet, 1 EACH PO Q4-6HR PRN for PAIN-MODERATE Prescribed by: SETH HERBERT on 02/12/201935 Ibuprofen 800 Mg Tab, 800 MG PO Q6HR PRN, (Reported) Loratadine/Pseudoephedrine Sul 1 Each Tab.sr.12h, 1 TAB PO DAILY PRN, (Reported) NEEDED FOR ALLERGIES Prednisone 20 Mg Tab, 60 MG PO DAILY Prescribed by: SETH HERBERT on 02/12/201935 Vits W-Ca,Fe,Fa(<1MG) 1 Each Tablet, 1 TAB PO HS, (Reported) Patient Home Medication List Home Medication List Reviewed: Yes (MARYJO HAYDEN) Review of Systems Constitutional: no symptoms reported, see HPI Musculoskeletal: see HPI, joint pain (Right wrist) (MARYJO HAYDEN) All Other Systems Reviewed Negative Unless Noted: Yes (MARYJO HAYDEN) Past Fnjddvv-Cmfkhc-Cnznne Hx Patient Social History Tobacco Use?: No Smoking Status: Never a Smoker Substance use?: No Alcohol Use?: No Pt feels they are or have been: No (MARYJO HAYDEN) Immunizations Up To Date Tetanus Booster (TDap): Unknown (MAYRJO HAYDEN) Seasonal Allergies Seasonal Allergies: No (MARYJO HAYDEN) Past Medical History Surgeries: Yes (C/S X2) Respiratory: No Cardiac: No Neurological: No Reproductive Disorders: Yes Sexually Transmitted Disease: Yes (chlamydia) Gastrointestinal: No Musculoskeletal: No Endocrine: No Cancer: No Psychosocial: No Integumentary: No Blood Disorders: No (MARYJO HAYDEN) Family Medical History Reviewed Nursing Family Hx (MARYJO HAYDEN) Physical Exam Vital Signs Vital Signs - First Documented 04/05/21 19:26 Temp 36.1 Pulse 110 Resp 17 B/P (MAP) 138/90 (106) O2 Delivery Room Air (LESLIE WESTON MD) Vital Signs Capillary Refill : Less Than 3 Seconds (MARYJO HAYDEN) Height, Weight, BMI Height: '" Weight: 190lbs. 4.0oz. [id number]; 33.00 BMI Method: General Appearance: WD/WN, no apparent distress Cardiovascular: normal peripheral pulses, regular rate, rhythm Respiratory: chest non-tender, lungs clear, normal breath sounds Elbow/Forearm: normal inspection, non-tender, no evidence of injury, normal ROM, Right Wrist: Yes normal inspection (Right), Yes limited ROM, Yes pain, Yes soft tissue tenderness Hand: normal inspection, non-tender, Right, limited ROM (Secondary to pain) Neurologic/Psychiatric: no motor/sensory deficits, alert, normal mood/affect, oriented x 3 (MARYJO HAYDEN) Progress/Results/Core Measures Results/Orders Vital Signs/I&O 04/05/21 19:26 Temp 36.1 Pulse 110 Resp 17 B/P (MAP) 138/90 (106) O2 Delivery Room Air (LESLIE WESTON MD) Blood Pressure Mean: 106 Diagnostic Imaging Diagonstic Imaging: Xray Plain Films/CT/US/NM/MRI: other (wrist) Comments NAME: TALYA MERLOS MED REC#: [id number] PT STATUS: REG ER : 1985 PHYSICIAN: MARYJO HAYDEN ADMIT DATE: 04/05/21/ER Draft Date of Exam:04/05/21 WRIST, RIGHT, 3 VIEWS OR MORE EXAMINATION: Right wrist radiographs, 3 views. COMPARISON: None. HISTORY: 35-year-old female, fall. Right wrist pain. FINDINGS: There is no identified acute fracture. There is no subluxation or dislocation. There is film artifact. There is no identified radiopaque foreign body. Joint spaces are well preserved. IMPRESSION: Unremarkable radiographs of the right wrist. Dictated on workstation # [id number] Dict: 04/05/211955 Trans: 04/05/212000 [facility] [id number] Interpreted by: BRANDON CHRISTINE MD Electronically signed by: Reviewed: Reviewed by Me (MARYJO HAYDEN) Departure Impression Primary Impression: Contusion of wrist Qualified Codes: S60.211A - Contusion of right wrist, initial encounter Additional Impression: Sprain of wrist, right Qualified Codes: S63.501A - Unspecified sprain of right wrist, initial encounter Disposition: 01 HOME, SELF-CARE Condition: Improved Departure-Patient Inst. Decision time for Depature: 20:15 (MARYJO AHYDEN) Referrals: NOAH SMITH MD (PCP/Family) Primary Care Physician Patient Instructions: Wrist Sprain (DC) Add. Discharge Instructions: Ice and elevate right wrist. Use wrist splint as needed. You may alternate between Tylenol 650 mg and ibuprofen 600 mg every 4 hours for pain. Follow-up with your primary care provider if symptoms are not improving or worsen. Return to the emergency department for new, urgent healthcare needs. All discharge instructions reviewed with patient and/or family. Voiced understanding. Work/School Note: Work Release Form Date Seen in the Emergency Department: Apr 05, 2021 Return to Work: Apr 06, 2021 Other Restrictions Listed Below: Work as tolerated for right hand. Light duty as needed. ATTENDING PHYSICIAN NOTE: I was physically present as attending physician in the emergency department during the care of this patient, but I was not directly involved in the decision making or delivery of care for this patient. (LESLIE WESTON MD) MARYJO HAYDEN Apr 05, 2021 20:11 LESLIE WESTON MD Apr 06, 2021 04:26
[2021-04-05] MEDS ORDERED: IBUPROFEN 800 MG (MOTRIN) TAB PO STA (20:24)
[2021-04-05 20:38] VITALS: BP 127/75
== END 2021-04-05 20:38 | disposition home or self-care (01) ==
LOC: EDUNIT# 19:19 → ER 19:24
DX: S63.501A Unspecified sprain of right wrist, initial encounter (principal); Z79.52 Long term (current) use of systemic steroids; W01.0XXA Fall on same level from slipping, tripping and stumbling without subsequent striking against object, initial encounter
CPT/HCPCS: 73110; 84703